=== PATIENT | male | born 1985 | race Two or more races ===

== ENCOUNTER 2018-12-18 17:25 | Emergency (ER) | payer SELFPAY ==
[~2018-12-18] VITALS: Ht 180.3 cm; Wt 82.6 kg
[2018-12-18 17:31] VITALS: BP 116/74
== END 2018-12-18 17:51 | disposition home or self-care (01) ==
LOC: ER 17:25
DX: S91.311D Laceration without foreign body, right foot, subsequent encounter (principal); W25.XXXD Contact with sharp glass, subsequent encounter